=== PATIENT | male | born 1945 | race Caucasian/White ===

== ENCOUNTER 2018-11-25 13:35 | Inpatient (IN) | payer OTHER ==
[~2018-11-25] VITALS: Ht 190.5 cm; Wt 94.9 kg
--- NOTE | 2018-11-25 13:50 | NUR ---
PT PRESENTS TO ED [facility] FOR PRODUCTIVE COUGH, CHILLS AND NAUSEA SINCE THIS AM. PT AAOX4. SPEECH CLEAR, SLOW. MOUTH DRY. PER MEDIC PT WAS GIVEN BREATHING TREATMENT IN ROUTE FOR LOW O2 SAT. ALSO STATES INTERMITTENT LOW BP AND WAS GIVEN 400 ML NS BOLUS. PER MEDICS PTS STATES SHE WILL BRING HOME MEDICATIONS SHORTLY.
--- NOTE | 2018-11-25 13:52 | NUR ---
O2 SAT 83% ON 2L NC. OXYGEN TITRATED TO 4L O2 SAT 85% AFTER FIVE MINUTES. O2 INCREASED TO 6LPM ON NC
--- NOTE | 2018-11-25 14:28 | NUR ---
1 GM PO TYLENOL GIVEN PER PROTOCOL FOR FEVER
--- NOTE | 2018-11-25 14:38 | NUR ---
MEDICATED PT FOR FEVER. PLEASE SEE EMAR.
[2018-11-25 14:47] LABS: PLATELET COUNT 214 x10^3mcL (130-400)
[2018-11-25 14:48] LABS: BASOPHIL % 2.1 % (0-2); RED CELL DISTRIBUTION WIDTH 14.8 % (11.5-14.5)
[2018-11-25 14:55] LABS: CALCIUM 8.7 mg/dL (8.5-10.1); CARBON DIOXIDE 29.7 mmol/L (21-32); CHLORIDE SERUM 107 mmol/L (98-107); CREATININE SERUM 1.4 mg/dL (0.7-1.3); GLUCOSE SERUM 112 mg/dL (74-106); POTASSIUM SERUM 3.6 mmol/L (3.5-5.1); SODIUM SERUM 146 mmol/L (136-145)
[2018-11-25 15:00] LABS: ALKALINE PHOSPHATASE 52 U/L (46-116); ALT/SGPT 13 U/L (16-63); AST/SGOT 11 U/L (15-37); BILIRUBIN TOTAL 0.4 mg/dL (0.20-1.00); TOTAL PROTEIN, SERUM 7.1 g/dL (6.4-8.2)
[2018-11-25 15:01] LABS: ALBUMIN 3.1 g/dL (3.4-5.0)
--- NOTE | 2018-11-25 15:36 | NUR ---
PT STATES UNABLE TO URINATE AT THIS TIME.
--- NOTE | 2018-11-25 15:42 | NUR ---
O2 SAT 96%. NC TITRATED FROM 6 LPM TO 4 LPM. O2 SAT 92%.
--- NOTE | 2018-11-25 16:06 | NUR ---
2.5L NS BOLUS COMPLETE AT THIS TIME. SEE VS DOCUMENTATION FOR AFTER BOLUS BP
[2018-11-25 16:43] LABS: microscopic required? NO
--- NOTE | 2018-11-25 16:43 | NUR ---
DR. DENG AT BEDSIDE EXPLAINING RESULTS TO PATIENT
[2018-11-25 17:02] LABS: urine erythrocyte NEGATIVE (NEGATIVE)
--- NOTE | 2018-11-25 17:09 | NUR ---
BP91/46(59) THEN 80/44 (60) ON RECHECK. DR. DENG MADE AWARE. STS HE WILL INPUT ORDERS FOR 150 ML/HR NS MAINTENANCE FLUID
[2018-11-25 18:02] LABS: MAGNESIUM 1.6 mg/dL (1.8-2.4); PHOSPHOROUS 1.1 mg/dL (2.5-4.9)
[2018-11-25 18:03] LABS: CHOLESTEROL/HDL RATIO 8.5
--- NOTE | 2018-11-25 18:17 | NUR ---
REPORT GIVEN TO ED SARKAR. ALL QUESTIONS ADDRESSED
[2018-11-25 18:25] VITALS: BP 94/52
[2018-11-25 18:54] VITALS: BP 99/52
--- NOTE | 2018-11-25 19:03 | NUR ---
RECEIVED PT FROM ED VIA ANNIA. ORIENTED PT TO ROOM AND SURROUNDINGS. IV NOTED TO LAC PTAENT AND INTACT. TELE 2 PLACED ON PT READING NSR. INSTRUCTED PT ON THE USE OF CALL LIGHT FOR ASSISTANCE. ENDORSED PT TO PRIMARY NURSE MALLIKA
--- NOTE | 2018-11-25 19:30 | NUR ---
RECEIVED FROM NURSE YOSEF. PT AWAKE AND ALERT, ORIENTED TO NAME, PLACE, TIME AND SITUATION. SPEECH CLEAR AND APPROPRIATE. EATING DINNER AT THIS TIME. NO COUGHING, CHOKING OR SWALLOW DELAY NOTED. ABLE TO COMPLETE SENTENCES WITHOUT DIFFICULTY. ON 2LPM OF O2 VIA NC. LUNG SOUNDS DIMINISHED. SINUS RHYTHM ON TELE. CALL LIGHT WITHIN EASY REACH. REINFORCED NEED TO USE CALL LIGHT TO CALL FOR ASSISTANCE.
--- NOTE | 2018-11-25 19:32 | NUR ---
ON HIGH FOWLERS.
[2018-11-25] MEDS ORDERED: PROPRANOLOL HCL10 MG PO (20:08)
[2018-11-25] MEDS ORDERED: GOOD SENSE OMEP20 MG PO ×2 (20:08)
[2018-11-25] MEDS ORDERED: ASPIR 8181 MG PO (20:09)
[2018-11-25] MEDS ORDERED: LOSARTAN POTASS25 M1 PO (20:10)
[2018-11-25] MEDS ORDERED: ZOL100 PO (20:10)
[2018-11-25] MEDS ORDERED: SPIRIVA RE2.5 MCG/Ac IH (20:12)
[2018-11-25] MEDS ORDERED: SYMBICORT1 AE3 INH (20:12)
[2018-11-25 20:33] VITALS: BP 90/65
--- NOTE | 2018-11-25 21:14 | NUR ---
LATE ENTRY: [facility] - HOME MEDS RECONCILED. DR. HAN WAS INFORMED.
[2018-11-25 21:44] LABS: AMPHETAMINE QUAL UR NONE DETECTED (See below)
--- NOTE | 2018-11-25 22:18 | NUR ---
INFORMED DR. GUILLE VALVERDE WAS NOT ADMINISTERED DUE TO BP 90/65.
[2018-11-25 22:19] VITALS: BP 87/55
--- NOTE | 2018-11-25 22:30 | NUR ---
BP 87/55 MAP 66, MT 77. INFORMED OMAYRA GOLDSMITH MAI LIV AWARE.
--- NOTE | 2018-11-25 22:41 | NUR ---
NEW ORDER RECEIVED. STARTED BOLUS OF NS 1 LITER.
[2018-11-25 23:48] VITALS: BP 106/55
--- NOTE | 2018-11-25 23:53 | NUR ---
BP 106/55.
[2018-11-26 00:24] VITALS: BP 105/56
--- NOTE | 2018-11-26 00:29 | NUR ---
LATE ENTRY: 2348H - BOLUS COMPLETED, BP 106/55
--- NOTE | 2018-11-26 00:55 | NUR ---
EYES CLOSED, BREATHING UNLABORED ON 4LPM OF O2 VIA NC. CALL LIGHT WITHIN EASY REACH. HOB ELEVATED 30 DEG.
[2018-11-26 06:04] VITALS: BP 122/83
--- NOTE | 2018-11-26 06:19 | NUR ---
AWAKE AND ALERT, SLEPT THROUGH MOST OF SHIFT. BREATHING UNLABORED ON 4LPM OF O2 VIA NC. IVF OF NS AT 150ML/HR INFUSING TO IV SITE TO RIGHT FOREARM. IV SITE FREE FROM ERYTHEMA OR SWELLING. SALINE LOCK TO LEFT AC FREE FROM ERYTHEMA OR SWELLING.
[2018-11-26 06:24] LABS: CALCIUM 7.9 mg/dL (8.5-10.1); CARBON DIOXIDE 27.7 mmol/L (21-32); CHLORIDE SERUM 113 mmol/L (98-107); CREATININE SERUM 1.3 mg/dL (0.7-1.3); GLUCOSE SERUM 154 mg/dL (74-106); MAGNESIUM 1.6 mg/dL (1.8-2.4); PHOSPHOROUS 2.6 mg/dL (2.5-4.9); POTASSIUM SERUM 4.6 mmol/L (3.5-5.1); SODIUM SERUM 148 mmol/L (136-145)
--- NOTE | 2018-11-26 07:02 | NUR ---
RECIVED REPORT FROM JUANITA SARKAR PATIENT RESTING COMFORTABLY IN BED. IV TO RFA IS PATENT AND INFUSING NS @ 150 ML/HR. NO REDNESS OR PAIN. TELE # [address]. PT DENIES CHEST PAIN. PT ON O2 4L NC. REPORTS NOT FEELING LIKE HE NEEDS IT. O2 TURNED DOWN TO 2L. WILL REASSESS. ALL QUESTIONS AND CONCERNS ADDRESSED.
--- NOTE | 2018-11-26 07:16 | NUR ---
SITTING ON BED. AWAKE AND ALERT, IN NO ACUTE DISTRESS. ENDORSED TO NURSE HARMONY
[2018-11-26 08:14] LABS: PLATELET COUNT 207 x10^3mcL (130-400)
--- NOTE | 2018-11-26 08:25 | NUR ---
DR PATRICIA SAYED PAGED FOR MAG 1.6 COVERAGE. AWAITING RESPONSE.
[2018-11-26 08:37] LABS: RED CELL DISTRIBUTION WIDTH 15.1 % (11.5-14.5)
--- NOTE | 2018-11-26 09:00 | NUR ---
NOTIFIED DR PATRICIA SAYED ABOUT MAG 1.6 AND WBC 23.5 AWAITING ORDERS.
[2018-11-26 09:15] VITALS: BP 132/75
--- NOTE | 2018-11-26 12:00 | NUR ---
ECHO IN TO SEE PATIENT.
[2018-11-26 12:51] VITALS: BP 116/61
--- NOTE | 2018-11-26 13:52 | NUR ---
DR PATRICIA SAYED PAGED TO REQUEST COVERAGE FOR MAG 1.6 AND TO REQUEST CONTINUATION OF SYMBICORT HOME MEDICATION. AWAITING RESPONSE.
[2018-11-26 13:59] VITALS: Ht 190.5 cm; Wt 94.9 kg
[2018-11-26 14:18] LABS: BAND NEUTROPHIL 5 % (0-10); BASOPHIL 0 % (0-2); MONOCYTE 3 % (0-7); PLATELET MORPHOLOGY PLATELETS DECREASED; SEGMENTED NEUTROPHILS 91 % (37-75)
[2018-11-26 14:19] LABS: rbc morphology (normal/abnorm) ABNORMAL (NORMAL)
--- NOTE | 2018-11-26 15:51 | NUR ---
PATIENT IV HAS INFILTRATED. WILL ATTEMPT REINSERTION AND CONTINUE FLUIDS.
[2018-11-26 16:40] VITALS: BP 115/64
--- NOTE | 2018-11-26 17:26 | NUR ---
SPOKE WITH DR PATRICIA SAYED TO REQUEST COVERAGE AGAIN FOR MAG 1.6 NOTIFY OF WBC AGAING 23.5 AND REQUEST CONTINUATION OF HOME MED SYMBICORT. AWAITING ORDERS.
--- NOTE | 2018-11-26 19:25 | NUR ---
RECIEVED PT RESTING IN BED, NO ACUTE DISTRESS NOTED. AOX4, DENIES NKOX/DIZZINESS. PT [place] BILAT. TELE #2, SR 74 W/ 1 DEGREE AV BLOCK. DENIES CP. PULSES PALPABLE BILAT, DENIES NUMBNESS/TINGLING IN FEET TRACE EDEMA NOTED BLE. RESP EVEN AND UNLABORED ON 2LNC, FINE CRACKLES NOTED BILAT LOWER LOBES, DIM UPPER LOBES. PT DENIES USING OXYGEN AT HOME. ABD SOFT, ROUND, DENIES ABD APIN. PT VOIDS W/ DYSURIA. AMB WITH STAND BY ASSIST. PT GAIT SLOW BUT STEADY. IV SITE TO THE LT HAND PATENT, NS @ 70ML/HR. NO REDNESS, SWELLING OR PAIN NOTED. ALL COMFORT AND SAFETY MEASURES PROVIDED FOR, CALL LIGHT WITHIN REACH, BED IN LOWEST POSITION, WILL CONTINUE TO MONITOR.
--- NOTE | 2018-11-26 19:38 | NUR ---
REPORT GIVEN TO JUAN SARKAR. PT RESTING COMFORTABLY IN BED. ALL NEEDS MET. ALL QUESTIONS AND CONCERNS ADDRESSED. ALL CARES ENDORSED.
[2018-11-26 20:50] VITALS: BP 106/69
--- NOTE | 2018-11-27 05:00 | NUR ---
PT RESTED IN INTERVALS DURING SHIFT, NO ACUTE CHANGES OCCURRING OVERNIGHT. PT HAD EPISODES OF [place] ON TELE STRIP, UPON ASSESSMENT, PT DENIES PALPITATIONS, CP, N/V, DIAPHORIESIS. VSS. PT REMAINS ON 2LNC, DENIES SOB/CP DURING SHIFT. PT AMB W/ ASSISTANCE TO RESTROOM W/O DIFFICULTY. IV SITE REMAINS PATENT LH, NS @ 70ML/HR. NO REDNESS, SWELLING OR PAIN NOTED. PT TOLERATING ANTIBIOTICS WELL. ALL COMFORT AND SAFETY MEASURES PROVIDED FOR, CALL LGITH WITHIN REACH, BED IN LOWEST POSITION, WILL CONTINUE TO MONITOR.
[2018-11-27 06:05] VITALS: BP 100/65
[2018-11-27 06:24] LABS: PLATELET COUNT 202 x10^3mcL (130-400)
[2018-11-27 06:29] LABS: CALCIUM 8.7 mg/dL (8.5-10.1); CARBON DIOXIDE 21.6 mmol/L (21-32); CHLORIDE SERUM 112 mmol/L (98-107); CREATININE SERUM 1.2 mg/dL (0.7-1.3); GLUCOSE SERUM 119 mg/dL (74-106); PHOSPHOROUS 2.7 mg/dL (2.5-4.9); POTASSIUM SERUM 4.2 mmol/L (3.5-5.1); SODIUM SERUM 147 mmol/L (136-145)
[2018-11-27 06:37] LABS: RED CELL DISTRIBUTION WIDTH 15.4 % (11.5-14.5)
[2018-11-27 06:53] LABS: MAGNESIUM 1.9 mg/dL (1.8-2.4)
--- NOTE | 2018-11-27 07:10 | NUR ---
RECIEVED PT RESTING IN BED WITH NO C/O PAIN, DISTRESS, OR SOB. TELE# 2 CONNECTED TO PT. A/O X4. NS RUNNING AT 70ML/HR IN LEFT HAND, INTACT AND PATENT WITH NO REDNESS OR INFLAMMATION. SAFETY PRECAUTIONS IN PLACE, CALL LIGHT WITHIN REACH, WILL MONITOR.
--- NOTE | 2018-11-27 07:38 | NUR ---
ENDORSED ALL CARE TO DAYSHIFT NURSE, ALL QUESTIONS AND CONCERNS ADDRESSED. ALL COMFORT AND SAFETY MEASURES PROVIDED FOR, CALL LIGHT WITHIN REACH, BED IN LOWEST POSITION, WILL CONTINUE TO MONITOR.
--- NOTE | 2018-11-27 09:00 | NUR ---
NOTIFIED RT CARLENE THAT PT HAS RX FOR SYMBICORT AND SPIRIVA, RT CARLENE STATES SHE WILL ADMINISTER THE MEDS TO PT PER RT JOE.
[2018-11-27 09:10] LABS: BAND NEUTROPHIL 0 % (0-10); BASOPHIL 0 % (0-2); MONOCYTE 2 % (0-7); SEGMENTED NEUTROPHILS 94 % (37-75)
[2018-11-27 09:11] LABS: PLATELET MORPHOLOGY PLATELETS DECREASED
[2018-11-27 09:12] LABS: rbc morphology (normal/abnorm) ABNORMAL (NORMAL)
[2018-11-27 09:53] VITALS: BP 140/64
--- NOTE | 2018-11-27 12:00 | NUR ---
PT STABLE AT THIS TIME, RESTING IN BED WATCHING TV. NO C/O PAIN, DISTRESS, OR SOB. AT BEDSIDE, SAFETY PRECAUTIONS IN PLACE, CALL LIGHT WITHIN REACH, WILL MONITOR.
[2018-11-27 13:14] VITALS: BP 155/71
--- NOTE | 2018-11-27 15:00 | NUR ---
PT STABLE. NO DISTRESS, PAIN, OR SOB NOTED. SAFETY PREC IN PLACE, CALL LIGHT WITHIN REACH, WILL MONITOR.
[2018-11-27 18:20] VITALS: BP 117/75
--- NOTE | 2018-11-27 18:57 | NUR ---
PT STABLE AT THIS TIME. NO C/O PAIN, DISTRESS, OR SOB. PT ON 2.5 LITERS O2 VIA NC. ALL CARES TOLERATED WELL. IV INTACT AND PATENT WITH NO REDNESWS OR INFLAMMATION. NS RUNNING AT 70ML/HR. SAFETY PRECAUTIONS IN PLACE, CALL LIGHT WITHIN REACH, WILL ENDORSE TO NIGHT NURSE.
--- NOTE | 2018-11-27 19:40 | NUR ---
Awake and verbally responsive. No respiratory distress noted on 02 2lpm via n/c. Denies pain. Denies n/v. Will cont.to monitor. Call light within reach.
[2018-11-27 21:35] VITALS: BP 126/79
--- NOTE | 2018-11-28 04:20 | NUR ---
Afebrile. No significant change in condition noted. Denies pain. No cough or congestion noted. Cont.on IV levaquin. In no apparent distress.
[2018-11-28 05:58] VITALS: BP 143/64
[2018-11-28 06:24] LABS: PLATELET COUNT 235 x10^3mcL (130-400)
[2018-11-28 06:39] LABS: CALCIUM 8.9 mg/dL (8.5-10.1); CARBON DIOXIDE 23.6 mmol/L (21-32); CHLORIDE SERUM 112 mmol/L (98-107); CREATININE SERUM 1.2 mg/dL (0.7-1.3); GLUCOSE SERUM 117 mg/dL (74-106); POTASSIUM SERUM 4.3 mmol/L (3.5-5.1); SODIUM SERUM 147 mmol/L (136-145)
[2018-11-28 07:03] LABS: RED CELL DISTRIBUTION WIDTH 15.2 % (11.5-14.5)
[2018-11-28 08:33] LABS: BAND NEUTROPHIL 4 % (0-10); BASOPHIL 0 % (0-2); MONOCYTE 5 % (0-7); SEGMENTED NEUTROPHILS 88 % (37-75)
[2018-11-28 08:34] LABS: PLATELET MORPHOLOGY PLATELETS NORMAL; rbc morphology (normal/abnorm) NORMAL (NORMAL)
[2018-11-28 08:45] VITALS: BP 110/75
--- NOTE | 2018-11-28 09:07 | NUR ---
ASSISTED PT TO RESTROOM, GAIT SLOW/STEADY, MININAL ASSIST. DENIES SOB AT THIS TIME ON ROOM AIR. RR EVEN/SHALLOW/UNLABORED. CTA BILATERALLY, DIMINISHED BLL. DENIES PAIN. NO CHEST PAIN. NO N/V. NO DIZZINESS. AA/OX4. CALM/COOPERATIVE. IV WNL TO LH, NO REDNESS, NO SWELLING, NO INFILTRATION. IV FLUIDS FLOWING. BED IN LOW POSITION. CALL LIGHT WITHIN REACH. INSTRUCTED TO USE CALL LIGHT TO CALL FOR ASSISTANCE PRN. VERBALIZED UNDERSTANDING. WILL CONTINUE TO MONITOR.
[2018-11-28 12:27] VITALS: BP 108/74
--- NOTE | 2018-11-28 12:35 | NUR ---
ASSISTED PT TO RESTROOM, GAIT SLOW/STEADY. VOIDS FREELY, URINE X1. NO S/S OF ACUTE DISTRESS. NO SOB ON ROOM AIR, O2 SAT 94%, RR EVEN/SHALLOW/UNLABORED. DENIES PAIN. CALM/COOPERATIVE. NO N/V. NO CHEST PAIN. BED IN LOW POSITION. CALL LIGHT WITHIN REACH. FALL PRECAUTIONS IN PLACE. WILL CONTINUE TO MONITOR.
--- NOTE | 2018-11-28 16:03 | NUR ---
O2 SAT 92% ON 1LNC. O2 SAT RANGES FROM 89%-92% ON ROOM AIR WHILE SITTING IN BED. PT REPORTS CHRONIC SOB, DENIES DIFFICULTY AT THIS TIME. NO COMPLAINT OF PAIN. PT READING BOOK WHILE SITTING AT SIDE OF BED. BED IN LOW POSITION. CALL LIGHT WITHIN REACH. WILL CONTINUE TO MONITOR.
[2018-11-28 16:57] VITALS: BP 114/79
--- NOTE | 2018-11-28 18:37 | NUR ---
PT SITTING UP IN BED. AA/OX4. DENIES DIFFICULTY BREATHING AT THIS TIME ON ROOM AIR. O2 SAT 93% ON ROOM AIR, RR EVEN/SHALLOW/UNLABORED. AT BEDSIDE. DENIES PAIN. NO N/V. NO CHEST PAIN. IV WNL TO LFA, NO REDNESS, NO SWELLING. NO INFILTRATION. PATENT AND FLUSHES WELL. FALL PRECAUTIONS IN PLACE. BED IN LOW POSITION. CALL LIGHT WITHIN REACH. WILL CONTINUE TO MONITOR.
--- NOTE | 2018-11-28 19:40 | NUR ---
RECEIVED PT FROM DAY SHIFT RN. PT AAOX4 DENIES HEADACHE OR DIZZINESS. TELE #2 SR PER HEART MONITOR. PT DENIES ANY CHEST PAIN. PT KASAAN. PT ON RA WITH NO SOB NOTED. PT DENIES RESP DISTRESS. PT AMBULATORY WITH ASSIST. PT DENIES ABD PAIN/N/V. IV LH PATENT. NO SIGNS OF ACUTE DISTRESS NOTED. CALL BUTTON WITHIN REACH. SAFETY PRECAUTIONS IN PLACE. WILL CONTINUE TO MONITOR.
[2018-11-28 20:03] VITALS: BP 140/82
--- NOTE | 2018-11-28 23:43 | NUR ---
PT AWAKE, BREATHING EVEN AND UNLABORED WITH NO SOB NOTED. IV PATENT, INFUSING WELL WITH NO SIGNS OF INFILTRATION. CALL BUTTON WITHIN REACH. SAFETY PRECAUTIONS IN PLACE. WILL CONTINUE TO MONITOR.
--- NOTE | 2018-11-29 01:54 | NUR ---
ROUNDS MADE. ASSISTED PT TO BATHROOM. PT DENIES ANY PAIN. BREATHING EVEN AND UNLABORED. NO SIGNS OF DISTRESS. SAFETY PRECAUTIONS IN PLACE. WILL CONTINUE TO MONITOR.
--- NOTE | 2018-11-29 03:58 | NUR ---
PT RESTING, BREATHING EVEN AND UNLABORED. NO SIGNS OF DISTRESS NOTED. CALL BUTTON WITHIN REACH. WILL CONTINUE TO MONITOR.
[2018-11-29 04:54] VITALS: BP 113/68
--- NOTE | 2018-11-29 05:16 | NUR ---
PT O2SAT 84% ON RA. PLACED PT ON 2L/MIN NC, NO SOB NOTED, O2SAT 92%. WILL CONTINUE TO MONITOR.
--- NOTE | 2018-11-29 06:05 | NUR ---
PT SLEPT ON AND OFF THROUGHOUT THE NIGHT WITH NO SIGNS OF DISTRESS. PT AMBULATORY WITH MINIMAL ASSSIT. PT DENIES ANY PAIN. PT DENIES SOB. RT PROTOCOL. PT MEDICATED PER EMAR. IV PATENT, INFUSING WELL. CALL BUTTON WITHIN REACH. SAFETY PRECAUTIONS IN PLACE. WILL CONTINUE TO MONITOR AND ENDORSE CARE TO DAY SHIFT RN.
[2018-11-29 06:08] LABS: PLATELET COUNT 239 x10^3mcL (130-400)
[2018-11-29 06:24] LABS: CHLORIDE SERUM 110 mmol/L (98-107); CREATININE SERUM 1.1 mg/dL (0.7-1.3); GLUCOSE SERUM 104 mg/dL (74-106); POTASSIUM SERUM 3.9 mmol/L (3.5-5.1); SODIUM SERUM 145 mmol/L (136-145)
[2018-11-29 06:44] VITALS: BP 154/73
--- NOTE | 2018-11-29 07:28 | NUR ---
PT AWAKE, DENIES ANY PAIN. NO SIGNS OF DISTRESS NOTED. ENDORSED CARE TO DAY SHIFT RN, ALL QUESTIONS ADDRESSED.
--- NOTE | 2018-11-29 07:37 | NUR ---
RECEIVED PATIENT FROM MELLO GUADARRAMA. PATIENT RESTING IN BED AT THIS TIME WITH NO COMPLAINTS. A/OX4, [place]. UPDATED PATIENT TO PLAN OF CARE FOR THE DAY WELL SAFETY CONCERNS TO CALL FOR STAFF FOR ASSISTANCE. PATIENT AGREES AND VERBALIZES UNDERSTANDING. CALL LIGHT IN REACH AT THIS TIME.
[2018-11-29 09:09] VITALS: BP 114/78
--- NOTE | 2018-11-29 10:03 | NUR ---
HARNESS PULLER ODILIA IN TO SPEAK WITH PATIENT. WILL ORDER REPEAT CXR AND HAVE DR ZHANG COME IN FOR CARDIAC CONSULTATION. RE-EXPLAINED TO PATIENT NEED FOR BREATHING TREATMENT, HOME O2, AND POSSIBLE HEART FAILURE. WILL PRINT EDUCATION HANDOUTS FOR PATIENT AND DO TEACHING. CALL LIGHT IN REACH AT THIS TIME.
--- NOTE | 2018-11-29 10:32 | NUR ---
EVALUATION FOR HOME O2 COMPLETED WITHOUT INCIDENT, WILL CONT. TO MONITOR.
[2018-11-29 11:56] VITALS: BP 133/77
--- NOTE | 2018-11-29 13:10 | NUR ---
DR CANALES IN TO SPEAK WITH PATIENT. IS ORDERED AND GIVEN TO PATIENT. IS INSTRUCTIONS GIVEN VERBALLY AND PATIENT VERBALIZES AND DEMONSTRATES UNDERSTANDING. CALL LIGHT IN REACH AT THIS TIME.
[2018-11-29 14:06] LABS: BAND NEUTROPHIL 2 % (0-10); SEGMENTED NEUTROPHILS 87 % (37-75)
[2018-11-29 14:07] LABS: MONOCYTE 4 % (0-7); PLATELET MORPHOLOGY PLATELETS NORMAL; rbc morphology (normal/abnorm) NORMAL (NORMAL)
--- NOTE | 2018-11-29 16:00 | NUR ---
DR ZHANG IN TO SPEAK WITH PATIENT. DR ZHANG STATES OK TO TRANSFER TO MED/SURG AND TO DC FLUIDS. ALSO TO ORDER ONE TIME DOSE OF LASIX IV. ALL QUESTIONS ANSWERED BY DR ZHANG. TELEMETRY RETURNED TO [facility]. CALL LIGHT IN REACH AT THIS TIME.
[2018-11-29 16:51] VITALS: BP 101/75
--- NOTE | 2018-11-29 18:42 | NUR ---
PATIENT SEATED AT BEDSIDE. A/OX4, CONTINUES TO BE ON O2. NO COMPLAINTS OF PAIN AT THIS TIME. CONTINUES TO USE INCENTIVE SPIROMETER. WILL ENDORSE TO ONCOMING NURSE. CALL LIGHT IN REACH AT THIS TIME.
--- NOTE | 2018-11-29 20:00 | NUR ---
RECEIVED PT IN BED, RESTING QUIETLY. A/O X4, [place]. ABLE TO VERBALIZE NEEDS. RESP. EVEN AND UNLABORED.02 AT 2L/MIN VIA NC, SAT. WELL. NO ACUTE DISTRESS NOTED.NO TELE, DENIES CP OR ANY DISCOMFORT AT THIS TIME. AFEBRILE AND VITAL SIGNS STABLE. HL TO LH, INTACT AND PATENT. ABLE TO MOVE ALL EXTS. VOIDING FREELY.ASSISTED WITH HS CARE. CALL LIGHT WITHIN REACH. WILL CONTINUE TO MONITOR.
[2018-11-29 20:35] VITALS: BP 125/82
--- NOTE | 2018-11-29 23:13 | NUR ---
IV SITE LEAKING, DISCONT. NEW IV SITE RESTARTED ON LEFT HAND WITH #22G ANGIO. WILL CONTINUE TO MONITOR.
--- NOTE | 2018-11-30 02:08 | NUR ---
EYES CLOSED, APPEARS ASLEEP, EASILY AROUSABLE. RESP. EVEN AND UNLABORED. [address], [place]ITH[place]. WELL. NO ACUTE DISTRESS NOTED. CALL LIGHT WITHIN REACH. WILL CONTINUE TO MONITOR.
[2018-11-30 05:34] VITALS: BP 119/55
[2018-11-30 05:59] LABS: PLATELET COUNT 222 x10^3mcL (130-400)
--- NOTE | 2018-11-30 06:02 | NUR ---
SLEPT WELL.NO COMPLAINTS NOTED. RESP. EVEN AND UNLABORED. NO ACUTE DISTRESS NOTED. AFEBRILE AND VITAL SIGNS STABLE. NO SIGNIFICANT CHANGE NOTED DURING THE NIGHT. DUE MEDS GIVEN ORDERED, NITHIN. WELL. VOIDING FREELY. KEPT COMFORTABLE. CALL LIGHT WITHIN REACH. WILL CONTINUE TO MONITOR.
[2018-11-30 06:48] LABS: CALCIUM 8.5 mg/dL (8.5-10.1); CARBON DIOXIDE 26.5 mmol/L (21-32); CHLORIDE SERUM 108 mmol/L (98-107); CREATININE SERUM 1.1 mg/dL (0.7-1.3); GLUCOSE SERUM 125 mg/dL (74-106); POTASSIUM SERUM 3.8 mmol/L (3.5-5.1); SODIUM SERUM 145 mmol/L (136-145)
[2018-11-30 06:50] LABS: RED CELL DISTRIBUTION WIDTH 14.9 % (11.5-14.5)
--- NOTE | 2018-11-30 07:07 | NUR ---
RECEIVED PATIENT RESTING COMFORTABLY IN BED. IV TO LFA IS PATENT AND INTACT. NO REDNESS OR PAIN. PT ON O2 2L NC. NO C/O SOB AND NO DISTRESS NOTED. ALL QUESTIONS AND CONCERNS ADDRESSED.
[2018-11-30 08:20] VITALS: BP 107/69
[2018-11-30] MEDS ORDERED: LEVAQUIN750 MG PO (08:52)
[2018-11-30] MEDS ORDERED: BREO ELLIPTA1 POW IH (08:52)
[2018-11-30] MEDS ORDERED: PREDNISONE20 MG PO (08:52)
[2018-11-30] MEDS ORDERED: LIPI20 PO (08:59)
[2018-11-30] MEDS ORDERED: LOSARTAN POTASS25 M1 PO (08:59)
[2018-11-30 11:35] LABS: BAND NEUTROPHIL 0 % (0-10); BASOPHIL 0 % (0-2); MONOCYTE 4 % (0-7); PLATELET MORPHOLOGY PLATELETS DECREASED; SEGMENTED NEUTROPHILS 91 % (37-75)
[2018-11-30 11:36] LABS: rbc morphology (normal/abnorm) ABNORMAL (NORMAL)
[2018-11-30 14:01] VITALS: BP 107/69
--- NOTE | 2018-11-30 16:50 | NUR ---
MICHAEL LILLY AND ODILIA MADE AWARE OF ABG RESULTS. PER MICHAEL LILLY PATIENT DOES NOT QUALIFY FOR HOME OXYGEN PER [facility] QUALIFICATIONS. PER ODILIA COMBINATION WELDER OKAY TO DISCHARGE PATIENT HOME AND HAVE PATIENT FOLLOW UP WITH PCP FOR A DATABASE OPERATOR REFERRAL. PRIMARY NURSE MADE AWARE.
--- NOTE | 2018-11-30 17:10 | NUR ---
PT STABLE FOR DISCHARGE PER MD. DISCHARGE INSTRUCTIONS AND SUMMARY DISCUSSED WITH PATIENT AND . BOTH VERBALIZED UNDERSTANDING AND AGREE TO FOLLOW UP WITH PRIMARY DOCTOR AND OBTAIN PULMONOLOGY REFERRAL. ID BANDS CUT. IV REMOVED. PT ESCORTED TO LOBBY VIA WHEELCHAIR.
== END 2018-11-30 17:15 | disposition home health service (06) | DRG 871 ==
LOC: ED 13:35 → MU 17:27 → DU 17:27 → MU 11-29 16:00
PROVIDERS: Emergency Medicine; Internal Medicine; ADMIT Internal Medicine
DX: A41.9 Sepsis, unspecified organism (principal); N17.0 Acute kidney failure with tubular necrosis; J18.9 Pneumonia, unspecified organism; E87.0 Hyperosmolality and hypernatremia; E44.1 Mild protein-calorie malnutrition; J44.1 Chronic obstructive pulmonary disease with (acute) exacerbation; E83.42 Hypomagnesemia; E83.39 Other disorders of phosphorus metabolism; K21.9 Gastro-esophageal reflux disease without esophagitis; E78.5 Hyperlipidemia, unspecified; I10 Essential (primary) hypertension; F41.8 Other specified anxiety disorders; Z68.24 Body mass index [BMI] 24.0-24.9, adult; Z87.891 Personal history of nicotine dependence
CPT/HCPCS: 36600; 83880; 87804; 97110-GP; 97116-GP; 97530-GP; G0378; J0696; J1644; J1940; J1956; J2920; J2930; J3490; J7030; J7620; J7626; Q0092